=== PATIENT | female | born 1995 | race Two or more races ===

== ENCOUNTER 2021-04-30 08:55 | Inpatient (IN) | payer OTHER ==
[~2021-04-30] VITALS: Ht 147.3 cm; Wt 73.5 kg
[2021-04-30 10:27] LABS: HEMOGLOBIN 8.7 gm/dl (12.3-15.3); RED BLOOD COUNT 3.86 M/UL (4.00-5.10); WHITE BLOOD COUNT 10.2 K/UL (4.5-11.0)
[2021-04-30] MEDS ORDERED: COLACE 100MG C100 MG PO (13:57)
[2021-04-30] MEDS ORDERED: HYDROCODON-ACE1 EAC6 PO (13:57)
[2021-04-30] MEDS ORDERED: IBUPROFEN600 MG PO (13:57)
[2021-05-01 07:13] LABS: HEMOGLOBIN 8.1 gm/dl (12.3-15.3)
== END 2021-05-02 17:29 | disposition home or self-care (01) | DRG 788 ==
LOC: GENOP 08:55 → OB 09:05
PROVIDERS: ADMIT Obstetrics & Gynecology
PROC: 4A1HXCZ Monitoring of Products of Conception, Cardiac Rate, External Approach (ICD-10-PCS; 2021-04-30)
PROC: 3E0234Z Introduction of Serum, Toxoid and Vaccine into Muscle, Percutaneous Approach (ICD-10-PCS; 2021-04-30)
PROC: 3E02340 Introduction of Influenza Vaccine into Muscle, Percutaneous Approach (ICD-10-PCS; 2021-04-30)
PROC: 10D00Z1 Extraction of Products of Conception, Low, Open Approach (ICD-10-PCS; principal; 2021-04-30 13:25)
DX: O34.211 Maternal care for low transverse scar from previous cesarean delivery (principal); Z3A.39 39 weeks gestation of pregnancy; Z37.0 Single live birth; Z20.822 Contact with and (suspected) exposure to COVID-19; O99.02 Anemia complicating childbirth; D64.9 Anemia, unspecified; Z23 Encounter for immunization
CPT/HCPCS: 81001; 82800; 85014; 85018; 85025; 86850; 86900; 86901; 90471; 90472; 90686; 90715; C9113; G0008; J0690; J1885; J2250; J2274; J2370; J2405; J2590; J3010; J7120; U0002